=== PATIENT | female | born 1975 | race Two or more races ===

== ENCOUNTER 2024-02-13 00:15 | Emergency (ER) | payer OTHER ==
[~2024-02-13] VITALS: Ht 170.2 cm; Wt 67.6 kg
[2024-02-13] MEDS ORDERED: PROTONIX20 MG PO (00:27)
[2024-02-13] MEDS ORDERED: OxyCODONE HCL/APAP UD (PERCOCET) PO STA (01:49)
== END 2024-02-13 03:28 | disposition home or self-care (01) ==
LOC: ER 00:15
DX: S52.592A Other fractures of lower end of left radius, initial encounter for closed fracture (principal); W18.39XA Other fall on same level, initial encounter; Y93.41 Activity, dancing; Y92.89 Other specified places as the place of occurrence of the external cause; Y99.9 Unspecified external cause status; Z88.2 Allergy status to sulfonamides

== ENCOUNTER 2024-02-13 20:38 | Emergency (ER) | payer OTHER ==
[~2024-02-13] VITALS: Ht 170.2 cm; Wt 68.0 kg
[~2024-02-13 20:38] MED LIST: PROTONIX20 MG PO
[2024-02-13] MEDS ORDERED: PROMETHAZINE HCL 25 MG/ML AMPUL IM ONE (22:15)
[2024-02-13] MEDS ORDERED: MEPERIDINE HCL/PF 50 MG/ML VIAL IM ONE (22:15)
== END 2024-02-14 01:27 | disposition home or self-care (01) ==
LOC: ER 20:40
DX: M79.632 Pain in left forearm (principal); Z88.2 Allergy status to sulfonamides